=== PATIENT | female | born 1980 | race Caucasian/White ===

== ENCOUNTER 2020-02-02 11:14 | Inpatient (IN) | payer OTHER ==
[~2020-02-02] VITALS: Ht 162.6 cm; Wt 78.5 kg
[2020-02-02] MEDS ORDERED: METFORMIN HCL500 M4 (11:22)
[2020-02-17] MEDS ORDERED: METFORMIN HCL500 MG PO (13:54)
[2020-02-17] MEDS ORDERED: NABUMETONE750 MG PO (13:54)
[2020-02-17] MEDS ORDERED: INTESTINEX680 M1 PO (13:54)
[2020-02-17] MEDS ORDERED: GLUCOTROL PO (13:54)
[2020-02-22] MEDS ORDERED: DICLOFENAC POTA50 MG PO (18:02)
== END 2020-02-17 19:02 | disposition home health service (06) | DRG 603 ==
LOC: ER 11:14 → SEC-K 22:23 → MEDI 22:23
PROVIDERS: ADMIT Internal Medicine; ATTEND Internal Medicine
PROC: B54CZZZ Ultrasonography of Left Lower Extremity Veins (ICD-10-PCS; 2020-02-03)
PROC: BQ2SYZZ Computerized Tomography (CT Scan) of Left Lower Extremity using Other Contrast (ICD-10-PCS; 2020-02-05)
PROC: BQ3FZZZ Magnetic Resonance Imaging (MRI) of Left Lower Leg (ICD-10-PCS; 2020-02-13)
PROC: 02HV33Z Insertion of Infusion Device into Superior Vena Cava, Percutaneous Approach (ICD-10-PCS; principal; 2020-02-14)
DX: L03.116 Cellulitis of left lower limb (principal); E11.65 Type 2 diabetes mellitus with hyperglycemia; M65.862 Other synovitis and tenosynovitis, left lower leg; Z79.4 Long term (current) use of insulin; Z20.828 Contact with and (suspected) exposure to other viral communicable diseases

== ENCOUNTER 2020-04-11 12:14 | Outpatient (CLI) | payer OTHER ==
[~2020-04-11 12:14] MED LIST: DICLOFENAC POTA50 MG PO; GLUCOTROL PO; INTESTINEX680 M1 PO; METFORMIN HCL500 M4; METFORMIN HCL500 MG PO; NABUMETONE750 MG PO
== END 2020-04-11 12:23 | disposition home or self-care (01) ==
LOC: SONOGRAMA 12:14 → MAMO-SONO 12:15 → SONOGRAMA 12:23
PROVIDERS: ATTEND Physical Medicine & Rehabilitation
DX: M76.822 Posterior tibial tendinitis, left leg (principal); M72.2 Plantar fascial fibromatosis